=== PATIENT | female | born 1995 | race Caucasian/White ===

== ENCOUNTER 2024-08-05 09:57 | Emergency (ER) | payer OTHER, SELFPAY ==
[2024-08-05 10:09] VITALS: BP 107/72; PULSE 104; RESP 18; TEMP 36.2; O2SAT 100
[2024-08-05 11:08] LABS: EDUAAPPEAR Cloudy; EDUABILI Negative (Negative); EDUABLOOD Negative (Negative); EDUACOLOR1 Yellow; EDUAGLUCOSE Negative (Negative); EDUAKETONE Negative (Negative); EDUALEUKO 1+ (Negative); EDUANITRATE Negative (Negative); EDUAPH 6.5; EDUAPROTEIN Trace (Negative); EDUASPGRAVITY 1.025; EDUAUROBILI 0.2
--- NOTE | 2024-08-05 11:25 | ED.GENADULT ---
HPI - General Adult General Chief complaint: Urogenital-Female Stated complaint: Urinary Problem Source: patient Mode of arrival: ambulatory Limitations: no limitations History of Present Illness HPI narrative: Patient presents for evaluation of urinary symptoms for the past two days. Her initial symptoms dysuria. She now has urinary frequency, urgency, and suprapubic pain. She denies any fever, chills, nausea, vomiting, low back pain. She is sexually active with her boyfriend, symptoms using condoms. She is not on contraception. LMP 07/17/24-07/22/24. She has a history of urinary tract infections and this feels similar. She reports milky white vaginal discharge and an odor which she attributes to her urine. Related Data Allergies Allergy/AdvReac Type Severity Reaction Status Date / Time No Known Allergies Allergy Verified 08/05/24 10:27 Review of Systems Review of Systems: CONSTITUTIONAL: Denies fever, chills, or sweats. EYES: Denies visual changes, redness, or discharge. ENT: Denies rhinorrhea, congestion, sore throat, or otalgia. CARDIOVASCULAR: Denies chest pain, palpitations, or edema. RESPIRATORY: Denies cough or dyspnea. GASTROINTESTINAL: Denies abdominal pain, nausea, vomiting, or diarrhea. GENITOURINARY: Reports dysuria, urinary frequency, urgency, suprapubic pain, foul smelling urine and milky white vaginal discharge SKIN: Denies rash or itching. MUSCULOSKELETAL: Denies back pain, joint pain, or myalgia. NEUROLOGIC: Denies headache, numbness, dizziness, or weakness. PSYCHIATRIC: Denies anxiety or depression. [facility] Past Medical History Medical History TBI (traumatic brain injury) Surgical History Surgical History History of tracheostomy Family History Family History Mother Family history non-contributory Social History Social History Smoking status: Never smoker Substance use: current Substance use type: marijuana Gender identity (if verbalized by the patient): Female Sexual Orientation (if Verbalized by the Patient): Straight or Heterosexual Exam Narrative: GENERAL: Well-appearing, well-nourished, and in no acute distress. HEAD: Normocephalic, atraumatic. EYES: PERRLA and EOMI. ENT: Nares clear, no rhinorrhea or epistaxis. Mucous membranes moist. Oropharynx without tonsillar hypertrophy exudate or other lesions. Bilateral TMs pearly silva nonbulging NECK: Supple. No adenopathy or masses. No carotid bruits or JVD CHEST: Clear to auscultation. No respiratory distress. No wheezes rales or rhonchi HEART: Regular rate and rhythm. No murmur heard. Normal peripheral pulses. ABDOMEN: Soft, mild suprapubic tenderness, nondistended, normal active bowel sounds. EXTREMITIES: Normal range of motion. No edema. BACK: No CVA tenderness SKIN: Warm, dry, no rash. NEURO: No focal deficits. Alert and oriented x3. PSYCH: Normal mood and affect. Course Course Emergency Course: This is a 29-year-old female who presented for evaluation of urinary symptoms and vaginal discharge. She has leukocytes in her urine today. Will run STI testing of her urine. She provided us with a specimen for BV. negative. Will discharge with Flagyl and Macrobid. Increase hydration. OTC agents for symptom management. Follow up with primary provider. Go to the ER for worsening symptoms. Patient in agreement with plan of care. Level of Care: Express Care Visit Vital Signs Vital signs: Vital Signs Temperature 36.2 C L 08/05/24 10:09 Pulse Rate 104 H 08/05/24 10:09 Respiratory Rate 18 08/05/24 10:09 Blood Pressure 107/72 08/05/24 10:09 Pulse Oximetry 100 08/05/24 10:09 Oxygen Delivery Room Air 08/05/24 10:09 Temperature 36.2 C L 08/05/24 10
[2024-08-05 11:36] LABS: BEDSIDEPREGUCG Negative (Negative)
[2024-08-05 18:41] LABS: Trichomonas Vag PCR NOT DETECTED (NOT DETECTE)
[2024-08-05 19:03] LABS: Chlamydia trachomatis NOT DETECTED (NOT DETECTE); Neisseria gonorrhoeae PCR NOT DETECTED (NOT DETECTE)
[2024-08-07 14:29] LABS: Bacterial Vaginosis POSITIVE (NEGATIVE)
== END 2024-08-05 11:44 | disposition home or self-care (01) ==
PROVIDERS: Emergency Provider Nurse Practitioner; PCP Obstetrics & Gynecology
DX: N39.0 Urinary tract infection, site not specified (principal); N76.0 Acute vaginitis; F12.90 Cannabis use, unspecified, uncomplicated; Z87.820 Personal history of traumatic brain injury
CPT/HCPCS: 81003; 81025; 81513; 87086; 87088; 87491; 87591; 87661; 99213; G0463

== ENCOUNTER 2024-09-28 10:43 | Emergency (ER) | payer OTHER, SELFPAY ==
--- NOTE | ~2024-09-28 | US_ITS ---
EXAMINATION: US OB transvaginal DATE: 09/28/2024 13:56 INDICATION: First trimester . Assess for ectopic . TECHNIQUE: Real-time pelvic ultrasound utilizing both a transvaginal and transabdominal probe was pe rformed. The interpreting radiologist was not present for the study. COMPARISON: None. FINDINGS: The uterus measures 7.7 x 3.9 x 4.6 cm. Moderate amount of anechoic fluid measuring 2.6 x 1.7 x 1.3 c m within the endometrial canal. More peripherally within the endometrial complex are couple 3 mm like ly gestational sacs without evident yolk sac or pole likely due to early stage of . The right ovary measures 3.1 x 1.7 x 2.0 cm. The left ovary measures 3.0 x 1.7 x 1.9 cm. After flow i dentified in both ovaries on color Doppler. On the left this can be seen along the periphery of a 1.4 cm thick-walled hypoechoic, centrally anechoic likely corpus luteum cyst. There is no free fluid in the pelvis. IMPRESSION: 1. A couple 3 mm likely intrauterine gestational sacs in the endometrial complex peripheral to a mode rate amount of anechoic fluid within the endometrial canal. No evident internal yolk sac or priya e likely due to early stage of and would consider short interval follow-up ultrasound in se veral days to assess for dating of and confirm viability. Reviewed, dictated and finalized at location [facility]. 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 A couple 3 mm likely intrauterine gestational sacs in the endometrial comple x peripheral to a moderate amount of anechoic fluid within the endometrial marlon l. No evident internal yolk sac or pole likely due to early stage of preg arden and would consider short interval follow-up ultrasound in several days to assess for dating of and confirm viability.
[2024-09-28 11:04] VITALS: BP 111/69; PULSE 104; RESP 18; TEMP 36.3; O2SAT 100
[2024-09-28 11:25] LABS: BEDSIDEPREGUCG Positive (Negative)
[2024-09-28 11:57] VITALS: BP 109/72; PULSE 95; RESP 16; TEMP 36.5; O2SAT 100
[2024-09-28 12:07] VITALS: BP 109/72; PULSE 78; RESP 16; TEMP 36.5; O2SAT 100
--- NOTE | 2024-09-28 12:44 | ED.FEMALEGU ---
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 PATIENT TESTED POSITIVE FOR TODAY. PATIENT IS 3, PARA 0, 2. Related Data Allergies Allergy/AdvReac Type Severity Reaction Status Date / Time No Known Allergies Allergy Verified 08/05/24 10:27 Review of Systems Review of Systems: All systems reviewed & are unremarkable except as noted in HPI and below PMFSH Past Medical History Medical History TBI (traumatic brain injury) Surgical History Surgical History History of tracheostomy Family History Family History Mother Family history non-contributory Social History Social History Smoking status: Never smoker Substance use: current Substance use type: marijuana Gender identity (if verbalized by the patient): Female Sexual Orientation (if Verbalized by the Patient): Straight or Heterosexual Exam Narrative: GENERAL APPEARANCE: WELL-DEVELOPED, WELL-NOURISHED SKIN: NORMAL COLOR HEAD: NORMOCEPHALIC, NONTRAUMATIC EYES: CLEAR CONJUNCTIVA ENT: OROPHARYNX NORMAL, EARS NORMAL, NOSE NORMAL NECK: SUPPLE, NONTENDER CHEST AND RESPIRATORY: AIRWAY PATENT, NO RESPIRATORY DISTRESS, NO ACCESSORY MUSCLE USE HEART: REGULAR RATE/RHYTHM ABDOMEN: SOFT, NONTENDER, NO ORGANOMEGALY, QUIET BOWEL SOUNDS VASCULAR: NORMAL PERIPHERAL PULSES, NORMAL CAPILLARY REFILL. MUSCULOSKELETAL: NORMAL RANGE OF MOTION, NONTENDER BACK NEUROLOGIC: ALERT AND ORIENTED ?3, TRADE FACILITATOR IS NORMAL TESTED, NO GROSS MOTOR DEFICIT Course Vital Signs Vital signs: Vital Signs Temperature 36.3 C L 09/28/24 11:04 Pulse Rate 104 H 09/28/24 11:04 Respiratory Rate 18 09/28/24 11:04 Blood Pressure 111/69 09/28/24 11:04 Pulse Oximetry 100 09/28/24 11:04 Oxygen Delivery Room Air 09/28/24 11:04 Temperature 36.9 C 09/28/24 12:48 Pulse Rate 79 09/28/24 12:48 Respiratory Rate 16 09/28/24 12:48 Blood Pressure 97/71 L 09/28/24 12:48 Pulse Oximetry 100 09/28/24 12:48 Oxygen Delivery Room Air 09/28/24 11:57 MDM - Female Genitourinary MDM Narrative Medical decision making narrative: PATIENT CAME WITH INTERMITTENT LEFT LOWER QUADRANT PAIN FOR FEW DAYS, TEST POSITIVE FOR TODAY VITAL SIGNS ARE STABLE PHYSICAL EXAMINATION INSIGNIFICANT DIFFERENTIAL DIAGNOSIS INCLUDE RELATED SYMPTOMS, ECTOPIC , URINARY TRACT INFECTION WORKUP TODAY SHOWED URINARY TRACT INFECTION PELVIC ULTRASOUND SHOWED INTRAUTERINE . Differential Diagnosis Differential diagnosis: Likely other ( ABOVE) Medical Records Attestation: I reviewed the patient's medical records. Lab Data Attestation: I reviewed the patient's lab results. 09/28/24 13:18 09/28/24 13:18 Labs: Lab Results 09/28/24 09/28/24 09/28/24 Range/Units 11:23 13:06 13:18 WBC 6.4 (4.5-10.0) K/mm3 RBC 4.56 (4.2-5.4) M/mm3 Hgb 13.7 (12.0-15.0) g/dL Hct 40.7 (37.0-47.0) % MCV 89.3 (80-100) fl MCH 30.0 (26-34) pg MCHC 33.7 (32-36) g/dl RDW 12.0 (11.5-14.5) % Plt Count 360 (150-375) k/mm3 MPV 10.1 (7.4-10.4) fl Immature Gran % (Auto) 0.3 (0-0.5) % Neut % (Auto) 71.8 (45.5-73.1) % Lymph % (Auto) 18.8 (18.3-44.2) % [place] % (Auto) 8.3 (2.6-8.5) % Eos % (Auto) 0.3 (0-4.4) % Baso % (Auto) 0.5 (0.2-1.2) % Lymph # (Auto) 1.20 (0.9-3.2) K/mm3 [place] # (Auto) 0.5 (0.1-0.6) K/mm3 Eos # (Auto) 0.0 (0-0.3) K/mm3 Baso # (Auto) 0.0 (0.0-0.1) K/mm3 Abs Immat Gran (auto) 0.02 (0.00-0.031) K/mm3 Absolute Neuts (auto) 4.6 (1.3-6.7) K/mm3 Absolute Nucleated RBC 0.000 (0.0-0.012) K/mm3 Nucleated RBC % 0.0 (0.0-0.2) % Sodium 138 (137-145) mmol/L Potassium 3.8 (3.4-5.0) mmol/L Chloride 103 (98-107) mmol/L Carbon Dioxide 24 (22-30) mmol/L Anion Gap 11 (4-12) mmol/L BUN 9 (7-17) mg/dL Creatinine 0.50 L (0.7-1.0) mg/dL Estim Creat Clear Calc 117 ml/min Estimated GFR > 60 (59 - ) Glucose 77 (65-110) mg/dL Calcium 9.2 (8.4-10.2) mg/dL Total Bilirubin 0.8 (0.2-1.3) mg/dL AST 28 (14-36) U/L ALT 13 (6-35) U/L Alkaline Phosphatase 54 (38-126) U/L Total Protein 9.0 H (6.3-8.2) g/dL Albumin 5.1 (3.5-5.1) g/dL Beta HCG, Quant 1584.10 mIU/ML Urine Color Yellow (Yellow) Urine Appearance Clear (Clear) Urine pH 5.5 (5.0-9.0) Ur Specific Leroy 1.015 (1.001-1.035) Urine Protein Negative (Negative) mg/dL Urine Glucose (UA) Negative (Negative) mg/dL Urine Ketones 1+ H (Negative) mg/dL Ur Blood (Man) Negative (Negative) Urine Nitrate Negative (Negative) Urine Bilirubin Negative (Negative) Urine Urobilinogen 0.2 (<2.0) mg/dL Leukocyte Esterase Rfl 3+ H (Negative) LITZY/UL Urine RBC 0-2 (0-2) /hpf Urine WBC 21-50 H (0-3) /hpf Ur Squamous Epith Cells Few (Few) /hpf Urine Bacteria Rare /hpf Urine Casts 0-2 POC Urine HCG, Qual Positive (Negative) Imaging Data Radiologist's impression: Impressions Transvaginal US 09/28/24 13:58 IMPRESSION: 1. A couple 3 mm likely intrauterine gestational sacs in the endometrial complex peripheral to a moderate amount of anechoic fluid within the endometrial canal. No evident internal yolk sac or pole likely due to early stage of and would consider short interval follow-up ultrasound in several days to assess for dating of and confirm viability. Critical Care Time Critical Care Time Critical Care Time: No Discharge Plan Discharge Clinical Impression: Urinary tract infection, Patient Disposition: Home, Self-Care Condition: Stable Instructions: Antibiotic Form, Abdominal Pain in (ED), Urinary Tract Infection in (ED) Additional Instructions: RETURN IF SYMPTOMS ARE WORSENING , CALL YOUR O[facility] FOR APPOINTMENT, TAKE TYLENOL NEEDED FOR ACHES AND PAIN, CONTINUE HOME MEDICATIONS. Prescriptions: New amoxicillin 875 mg tablet 875 mg PO Q12H Qty: 20 0RF No Action nitrofurantoin monohyd/m-cryst [Macrobid] 100 mg capsule 100 mg PO Q12H 7 Days Qty: 14 0RF Rx Instructions: must administer with a meal/food metronidazole 500 mg tablet 500 mg PO Q12H Qty: 14 0RF Follow-up/Referrals: Jaida Martinez MD [Physician] - 10/02/24 UNKNOWN,DOCTOR [Primary Care Provider] -
[2024-09-28 12:48] VITALS: BP 97/71; PULSE 79; RESP 16; TEMP 36.9; O2SAT 100
[2024-09-28 14:06] LABS: Add Urine Microscopic? YES; Appearance Urine Clear (Clear); Bacteria Urine Rare /hpf; Bilirubin Urine Negative (Negative); Blood Urine Negative (Negative); Color Urine Yellow (Yellow); Glucose Urine UA Negative (Negative); Ketones Urine 1+ mg/dL (Negative); Leukocyte Esterase Ur 3+ LEU/UL (Negative); Nitrate Urine Negative (Negative); Non Pathogenic Casts 0-2; Protein Urine Negative (Negative); RBC Urine 0-2 /hpf (0-2); Specific Grav Ur 1.015 (1.001-1.035); Squamous Epithelial Cell Urine Few /hpf (Few); Urobilinogen Urine 0.2 mg/dL (<2.0); WBC Urine 21-50 /hpf (0-3); pH Urine 5.5 (5.0-9.0)
[2024-09-28 14:07] LABS: Basophils Percent Auto 0.5 % (0.2-1.2); Eosinophils Percent Auto 0.3 % (0-4.4); Hematocrit 40.7 % (37.0-47.0); Hemoglobin 13.7 g/dL (12.0-15.0); Immature Granulocyte Absolute 0.02 K/mm3 (0.00-0.031); Immature Granulocyte Percent A 0.3 % (0-0.5); Lymphocytes Percent Auto 18.8 % (18.3-44.2); Mean Corpuscular HGB Conc 33.7 g/dl (32-36); Mean Corpuscular Volume 89.3 fl (80-100); Mean Platelet Volume 10.1 fl (7.4-10.4); Monocytes Absolute Auto 0.5 K/mm3 (0.1-0.6); Monocytes Percent Auto 8.3 % (2.6-8.5); Neutrophils Absolute Auto 4.6 K/mm3 (1.3-6.7); Neutrophils Percent Auto 71.8 % (45.5-73.1); Platelet Count Result 360 k/mm3 (150-375); Red Blood Count 4.56 M/mm3 (4.2-5.4); White Blood Count 6.4 K/mm3 (4.5-10.0)
[2024-09-28 14:20] LABS: Alanine Aminotransferase 13 U/L (6-35); Albumin Level 5.1 g/dL (3.5-5.1); Alkaline Phosphatase 54 U/L (38-126); Anion Gap 11 mmol/L (4-12); Aspartate Amino Transferase 28 U/L (14-36); Bilirubin,Total 0.8 mg/dL (0.2-1.3); Blood Urea Nitrogen 9 mg/dL (7-17); Calcium 9.2 mg/dL (8.4-10.2); Carbon Dioxide 24 mmol/L (22-30); Chloride 103 mmol/L (98-107); Estimated CRCL calculation 117 ml/min; Estimated Glomerular Filt Rate > 60; Glucose 77 mg/dL (65-110); Potassium 3.8 mmol/L (3.4-5.0); Sodium 138 mmol/L (137-145)
[2024-09-28 15:40] VITALS: PULSE 88; TEMP 36.6; O2SAT 100
== END 2024-09-28 15:43 | disposition home or self-care (01) ==
PROVIDERS: Student in an Organized Health Care Education/Training Program; Emergency Provider Emergency Medicine
DX: O23.40 Unspecified infection of urinary tract in pregnancy, unspecified trimester (principal); N39.0 Urinary tract infection, site not specified
CPT/HCPCS: 36415; 76817; 80053; 81001; 81025; 84702; 85025; 87086; 99284